=== PATIENT | female | born 1970 | race Hispanic/Latino ===

== ENCOUNTER 2019-06-12 10:38 | Emergency (ER) | payer OTHER ==
[~2019-06-12] VITALS: Ht 157.5 cm; Wt 49.9 kg
[~2019-06-12 10:38] MED LIST: DOCUSATE SODIU100 MG PO; SYNTHROID100 MCG PO
[2019-06-12] MEDS ORDERED: HYDROCODONE/APAP 10MG-325MG TAB PO NR (12:30)
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
[2019-06-12] MEDS ORDERED: KETOROLAC TROMETHAMINE 60 MG/2 ML VIAL IM ONE (13:45)
[2019-06-12] MEDS ORDERED: SODIUM CHLORIDE 0.9% 1000ML 2,000 ML ONE (14:43)
== END 2019-06-12 13:45 | disposition home or self-care (01) ==
LOC: ER 10:38
DX: S20.212A Contusion of left front wall of thorax, initial encounter (principal); W19.XXXA Unspecified fall, initial encounter; Y92.488 Other paved roadways as the place of occurrence of the external cause; E03.9 Hypothyroidism, unspecified
CPT/HCPCS: 71101; 99284; J1885; J7030

== ENCOUNTER 2020-04-25 20:43 | Emergency (ER) | payer OTHER ==
[~2020-04-25] VITALS: Ht 157.5 cm; Wt 59.0 kg
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
== END 2020-04-25 20:58 | disposition home or self-care (01) ==
LOC: ER 20:50
DX: H57.11 Ocular pain, right eye (principal); H00.013 Hordeolum externum right eye, unspecified eyelid; E03.9 Hypothyroidism, unspecified
CPT/HCPCS: 99282